=== PATIENT | female | born 1995 | race Asian ===

== ENCOUNTER → 2023-08-09 | Outpatient (CLI) | payer BC | END | disposition home or self-care (01) | LOC: RAD 11:23 | PROVIDERS: ATTEND Specialist | DX: R94.31 Abnormal electrocardiogram [ECG] [EKG] (principal); R00.2 Palpitations | CPT/HCPCS: 93307 ==

== ENCOUNTER 2025-03-10 09:56 | Emergency (ER) | payer BC ==
[~2025-03-10] VITALS: Ht 167.6 cm; Wt 52.0 kg
[2025-03-10 09:59] VITALS: BP 122/78; TEMP 36.5; O2SAT 97
[2025-03-10 10:00] VITALS: PULSE 100; RESP 16; O2SAT 98
[2025-03-10 11:50] LABS: INFLUENZA TYPE A Presumptive Negative (Pres. Neg.); INFLUENZA TYPE B Presumptive Negative (Pres. Neg.)
== END 2025-03-10 11:40 | disposition left against medical advice (07) ==
LOC: ER 09:56
DX: B34.9 Viral infection, unspecified (principal)
CPT/HCPCS: 87804; 99283

== ENCOUNTER 2025-05-19 08:10 | Emergency (ER) | payer BC ==
[~2025-05-19] VITALS: Ht 167.6 cm; Wt 53.0 kg
[2025-05-19 08:16] VITALS: O2SAT 100
[2025-05-19 09:53] VITALS: BP 119/72; PULSE 86; RESP 16; TEMP 36.8; O2SAT 100
== END 2025-05-19 09:55 | disposition home or self-care (01) ==
LOC: ER 08:10
DX: R07.1 Chest pain on breathing (principal); R06.02 Shortness of breath; Z98.890 Other specified postprocedural states
CPT/HCPCS: 71046; 71250; 93005; 99284